=== PATIENT | female | born 1960 | race Caucasian/White ===

== ENCOUNTER → 2021-09-04 | Day surgery (SDC) | payer OTHER, BC ==
[~2021-09-04] VITALS: Ht 170.2 cm; Wt 77.2 kg
[~2021-09-04] MED LIST: 0.9 % SODIUM CHLORIDE 10 ML DISP.SYRIN. IV PRN; AMLO-186 PO; AMOX1TAB61 PO; ATOR20TA58 PO; DEXAMETHASONE SOD PHOS 4 MG/ML VIAL ONE; ESCITALOPRAM OX10 MG PO; FAMO20TA5 PO; FAMOTIDINE 20 MG/2 ML VIAL ONE; FLUT16SP NS; HYDR2TAB31 PO; HYDROmorphone 2 MG/ML INJ. IV PRN; HYDROmorphone 2 MG/ML INJ. IVP PRN; INSULIN LISPRO 100 UNIT/ML 3ML VIAL for OP,RR ONLY. SQ PRN; IOHEXOL 300 MG/ML 50 ML VIAL. ONE; IV NORMAL SALINE 1000ML BAG 1,000 ML IV SCH; IV RINGERS,LACTATED 1000ML 1,000 ML IV SCH; KETOROLAC 30 MG/ML VIAL. ONE; LEVO-101 PO; LIDOCAINE 2% PF 5 ML VIAL. ONE; LOSA100T14 PO; METF100010 PO; MIDAZOLAM HCL/PF 2 MG/2 ML VIAL. ONE; MORPHINE SULFATE 2 MG/ML INJ. IVP PRN; NALOXONE 0.4 MG/ML VIAL. IV PRN; ONDANSETRON PF 4 MG/2 ML VIAL. IVP PRN; ONDANSETRON PF 4 MG/2 ML VIAL. ONE; PROCHLORPERAZINE 10 MG/2 ML VIAL. IVP PRN; PROPOFOL 10 MG/ML (20ML) VIAL. IV ONE; SEVOFLURANE 31 TO 60 MINUTES. IH ONE; TIZA-75 PO; fentaNYL PF VIAL 100 MCG/2 ML VIAL IVP PRN; fentaNYL PF VIAL 100 MCG/2 ML VIAL ONE; oxyCODONE IR 5 MG TABLET PO PRN
[2021-09-04 06:21] VITALS: BP 146/67
[2021-09-04 07:22] LABS: CALCIUM 8.4 mg/dL (8.5-10.1); CREATININE 0.7 mg/dL (0.6-1.0); GFR 85.1; POTASSIUM 3.9 mmol/L (3.5-5.1)
--- NOTE | 2021-09-04 08:57 | PDOC4 ---
OPERATIVE NOTE Pre-Op Diagnosis: Left kidney stone Post-Op Diagnosis: Same Procedure Performed: 1. Cystoscopy. 2. Bilateral retrograde pyelogram. 3. Left ureteroscopy with stone laser and basketing of stone fragment. 4. Left ureteral stent placement Surgeon: Mesha May MD Anesthesia Type: General Blood Loss: None Specimans Obtained: Stones Findings: Left renal stone Complications: None Operative Note: Once patient was taken to the operating room she was placed supine on operating room table. Adequate anesthesia was established. Patient's position was changed to dorsolithotomy. Genital area was prepped in usual surgical fashion. A 21 Macanese rigid cystoscope was introduced into the bladder and bladder was inspected. No abnormalities were noted. Using five Macanese open-ended catheter bilateral retrograde pyelograms were performed. No abnormalities were noted on the right side. On the left side we can appreciate a large filling defect in the renal pelvis consistent with known stone. 0.035 guidewire was placed into the left kidney followed by 12/14 ureteral access sheath. Flexible ureteroscope was introduced per access sheath into the renal pelvis and fairly sizable stone was systematically fragmented with holmium laser. Fragments were taken out with a zero tip basket. Upon completion of procedure only sand-like material was left behind. We inspected the collecting system and the entire ureter. No inadvertent injuries were noted. Ureteroscope and access sheath were withdrawn and then using safety guidewire six Macanese 24 cm double-J stent was placed into the left kidney under fluoroscopy guidance. Both proximal distal coils were observed. Bladder was drained. String was left attached to the stent. Patient's anesthesia was reversed and she was transported to postanesthesia care unit in stable condition. MESHA MAY MD Sep 04, 2021 08:57
[2021-09-04 10:18] VITALS: BP 128/74
--- NOTE | 2021-09-05 18:08 | PATHOLOGY ---
[facility] Accession Number: [id number] . 01 Material submitted: . kidney - LEFT KIDNEY STONES. Modifiers: left . 01 Clinician provided ICD-10: n . 01 Clinical history: . CYSTOSCOPY, BILATERAL TRIGGER PYELOGRAMS, LEFT URETEROSCOPY, HOLMIUM LASER OF STONE AND BASKET, STENT PLACEMENT . 02 Diagnosis: Left kidney stones: - Consistent with calculi. - The specimen is sent out for further processing. Report pending outside analysis with results to follow in an addendum. [facility] 09/04/2021 1603 Local . 02 Electronically signed: . Magdi Davey MD, Pathologist NPI- [id number] . 01 Gross description: . The specimen is received fresh, labeled "Skylar Garcia, left kidney stones". Received are multiple, light brown calculi ranging in size from 0.3-0.5 cm. The specimen is forwarded to sendouts for further processing. ([facility]; 09/04/2021) NRI/NRI 09/04/2021 1600 Local . 02 Pathologist provided ICD-10: N20.0 . 02 CPT . 311625 Specimen Comment: A courtesy copy of this report has been sent to [phone] Specimen Comment: Report sent to Specimen Comment: A duplicate report has been generated due to demographic updates. Performed at: [facility] [address], [place] [id number] MD Ron Hobbs MD Phone: [phone] Performed at: 02 [facility] [address], [place] [id number] MD Magdi Davey MD Phone: [phone]
== END | disposition home or self-care (01) ==
LOC: SURG 05:50
PROVIDERS: ATTEND Urology
DX: N20.0 Calculus of kidney (principal); I10 Essential (primary) hypertension; E78.00 Pure hypercholesterolemia, unspecified; E03.9 Hypothyroidism, unspecified; M19.90 Unspecified osteoarthritis, unspecified site; F32.9 Major depressive disorder, single episode, unspecified; K21.9 Gastro-esophageal reflux disease without esophagitis; Z98.890 Other specified postprocedural states; Z79.899 Other long term (current) drug therapy
CPT/HCPCS: 36415; 52356; 74420; 80048; 82962; 88300; A4930; C1758; C1769; C1894; C2617; J0690; J1100; J1885; J2250; J2405; J2704; J3010; J3490; Q9967; 76000; A4657